=== PATIENT | female | born 1970 | race Caucasian/White ===

== ENCOUNTER 2018-09-27 13:51 | Outpatient (CLI) | payer BC ==
--- NOTE | 2018-09-27 14:39 | RAD ---
XR Lumbar Spine Bending Min 4V History: M [age] radiculopathy Comparison: Lumbar spine MRI 2017 Findings: Large hemorrhage in dayo thoracolumbar spine. Mild levoscoliosis lumbar spine. Asymmetric le ft worse than right L5/S1 facet arthropathy. Mild narrowing of the L4/L5 and L5/S1 disc spaces. Mild narrowing of the interspinous space L3-L5. Impression: Mild levoscoliosis and low-grade facet arthropathy.
--- NOTE | 2018-09-27 17:16 | MRI ---
MRI LUMBAR SPINE WITH AND WITHOUT IV CONTRAST: 09/27/18 HISTORY: Lumbar radiculopathy. Low back pain. Congenital scoliosis due to congenital bony malformation. COMPARISON: Radiographs lumbar spine also obtained on this date. FINDINGS: The visualized retroperitoneal structures demonstrate a normal MRI appearance. There is metallic susceptibility artifact seen along the left aspect of the lower thoracic and upper lumbar spine extending to a level just posterior to the central canal of the L2 vertebral body relate d to single [place] transfixing the thoracolumbar spine. The metallic susceptibility artifact does obscure the central spinal canal posterior to the L2 vertebral body and also obscures the left s ided neural foramina a the Tf12-L1, and L1-2 levels. The tip of the conus medullaris is also partiall y obscured but likely terminates at the level of the L1 vertebral body. There is slight exaggerated kyphosis of the lumbar spine centered at the L2-3 level with left convexe d rotoscoliosis of the lumbar spine. L1-2 level: There is no disc bulge or disc herniation seen. Left neural foramen and central canal are obscured at this level. The right neural foramen is patent. L2-3 level: There is a disc osteophyte complex present at this level. Central spinal canal and neura l foramina do appear patent. L3-4 level: There is a mild broad based disc osteophyte complex resulting in mild flattening of the a nterior aspect of the thecal sac. The neural foramina are patent. Facet degenerative changes are note d at this level. L4-5 level: There is a mild disc osteophyte complex with facet degenerative changes. There is mild f lattening of the anterior aspect of the thecal sac. Left laminotomy defect is present at this level. The central spinal canal and neural foramina are patent at this level. L5-S1 level: There is loss of intervertebral disc height. There is a broad based disc osteophyte comp alisha greater centrally and paracentrally on the left. Facet hypertrophic changes are present at this level with tiny increased T2 weighted signal intensity structures involving each facet joint likely r elated to tiny synovial cysts projecting posteriorly. The central spinal canal is patent with trace mass effect on the left posterolateral aspect of the thecal sac. The right neural foramen is patent. There is prominent narrowing of the subarticular zone on the left due to the left paracentral disc os teophyte complex and facet hypertrophic changes. There is a left laminotomy defect at this level with enhancing soft tissue density seen in the region of the laminotomy defect and extending anteriorly a djacent to the posterior aspect of the traversing left S1 nerve root. The enhancing material also lonny ears to extend adjacent to the posterior aspect of the left L5 nerve root within the left neural fora men. Post surgical changes have occurred since MRI lumbar spine on 10/28/16 obtained at [facility]. IMPRESSION: 1. Mild disc degenerative changes at the L2-3, L3-4, and L4-5 levels without significant narrowi ng of the neural foramina at these levels. Finding are similar to prior study obtained in 2017. 2. Disc degenerative change at the L5-S1 level with left laminotomy defect present. There is sca r within the region of the laminotomy defect which extends anteriorly and abuts the posterior aspect of the traversing left S1 nerve root as well as appears to abut the posterior aspect of the left L5 n erve root within the neural foramen. In addition, there is a left paracentral disc osteophyte complex and facet degenerative changes which results in moderate to severe left sided neural foraminal narro wing at the L5-S1 level. POS: GLORIA
== END 2018-09-27 13:52 | disposition home or self-care (01) ==
LOC: TBSIIMAG 13:51
PROVIDERS: ATTEND Physician Assistant Surgical
DX: M47.26 Other spondylosis with radiculopathy, lumbar region (principal); Q76.3 Congenital scoliosis due to congenital bony malformation; M51.17 Intervertebral disc disorders with radiculopathy, lumbosacral region; M48.07 Spinal stenosis, lumbosacral region; Z98.890 Other specified postprocedural states
CPT/HCPCS: 72120; 72158

== ENCOUNTER 2021-01-03 11:32 | Outpatient (CLI) | payer BC ==
[2021-01-03 23:49] LABS: SARS-CoV-2 PCR by NAA Not Detected (NotDetected)
== END 2021-01-03 11:33 | disposition home or self-care (01) ==
LOC: LABBT 11:32
PROVIDERS: ATTEND Specialist
DX: Z01.812 Encounter for preprocedural laboratory examination (principal); G89.4 Chronic pain syndrome; Z20.822 Contact with and (suspected) exposure to COVID-19
CPT/HCPCS: U0003; U0005

== ENCOUNTER 2021-01-07 10:36 | Day surgery (SDC) | payer BC ==
[2021-01-06 12:42] VITALS: BMI 19.6
[2021-01-07] MEDS ORDERED: CEFAZOLIN 1 GM VIAL ONE (11:02)
[2021-01-07] MEDS ORDERED: Sodium Chloride 0.9% 100 ML ONE (11:03)
[2021-01-07] MEDS ORDERED: EPINEPHrine 1 MG/ML AMP ONE (13:14)
[2021-01-07] MEDS ORDERED: Bupivacaine PF 0.5% 30 ML VIAL ONE (13:14)
[2021-01-07] MEDS ORDERED: Sodium Chloride 0.9% 0 ML ONE (13:14)
[2021-01-07] MEDS ORDERED: Fentanyl 100 MCG/2 ML VIAL ONE ×3 (13:22→15:47)
[2021-01-07] MEDS ORDERED: SUGAMMADEX SODIUM 200 MG/2 ML VIAL ONE (13:22)
[2021-01-07] MEDS ORDERED: PROPOFOL 200 MG/20 ML VIAL ONE (13:39)
[2021-01-07] MEDS ORDERED: Rocuronium Bromide 10 MG/ML (10ML VIAL) ONE (13:39)
[2021-01-07] MEDS ORDERED: Dexamethasone 20 MG/5 ML VIAL ONE (13:39)
[2021-01-07] MEDS ORDERED: Metoclopramide HCl 10 MG/2 ML VIAL ONE (13:39)
[2021-01-07] MEDS ORDERED: PHENYLEPHRINE-NS 100 MCG/ML 10 ML SYRINGE ONE (13:39)
[2021-01-07] MEDS ORDERED: Ketorolac Tromethamine 30 MG/ML VIAL ONE (13:39)
[2021-01-07] MEDS ORDERED: ePHEDrine 50 MG/ML VIAL ONE (13:39)
[2021-01-07] MEDS ORDERED: Ondansetron PF 4 MG/2 ML Vial ONE (13:39)
[2021-01-07] MEDS ORDERED: Lidocaine 1% PF 5 ML VIAL ONE (13:39)
[2021-01-07] MEDS ORDERED: Thrombin 5000 UNITS/5 ML VIAL ONE (14:34)
[2021-01-07] MEDS ORDERED: HYDROcodone/Acetaminophen 5/325 mg Tablet ONE (16:28)
== END 2021-01-07 17:05 | disposition home or self-care (01) ==
LOC: SDC 10:36
PROVIDERS: ATTEND Specialist
PROC: 00HU0MZ Insertion of Neurostimulator Lead into Spinal Canal, Open Approach (ICD-10-PCS; principal; 2021-01-07)
PROC: 0JH70BZ Insertion of Single Array Stimulator Generator into Back Subcutaneous Tissue and Fascia, Open Approach (ICD-10-PCS; principal; 2021-01-07)
DX: M96.1 Postlaminectomy syndrome, not elsewhere classified (principal); G89.4 Chronic pain syndrome; M54.16 Radiculopathy, lumbar region; Z79.899 Other long term (current) drug therapy; Z88.1 Allergy status to other antibiotic agents; Z88.2 Allergy status to sulfonamides; Z98.890 Other specified postprocedural states
CPT/HCPCS: 72020; 76000; C1778; C1787; C1820; J0171; J0690; J1100; J1885; J2405; J2704; J2765; J3010; J3490; L8689; S0020